=== PATIENT | male | born 1980 | race African-American/Black ===

== ENCOUNTER 2019-03-02 15:58 | Inpatient (IN) ==
[2019-03-02 16:08] VITALS: BMI 25.0
[2019-03-02 16:43] LABS: BASOPHILS # (AUTO) 0.1 X10^3/uL (0.0-0.1); EOSINOPHILS # (AUTO) 0.4 x10^3/uL (0.0-0.2); EOSINOPHILS % (AUTO) 7.3 % (0.9-2.9); LYMPHOCYTES # (AUTO) 0.8 X10^3/uL (1.3-2.9); LYMPHOCYTES % (AUTO) 13.6 % (21.0-51.0); MEAN CORPUSCULAR HGB CONC 28.7 g/dL (33.0-35.0); MEAN CORPUSCULAR VOLUME 52.4 fL (80.0-100.0); MONOCYTES # (AUTO) 0.7 x10^3/uL (0.3-0.8); MONOCYTES % (AUTO) 12.1 % (0.0-13.0); PLATELET COUNT 560 X10^3/uL (150.0-450.0); RED BLOOD COUNT 3.74 X10^6/uL (4.7-6.0); RED CELL DISTRIBUTION WIDTH 20.2 % (11.6-16.5); WHITE BLOOD COUNT 6.1 X10^3/uL (3.6-10.0)
[2019-03-02 16:53] LABS: HEMOGLOBIN 5.6 g/dL (13.5-18.0)
[2019-03-02 16:54] LABS: HEMATOCRIT 19.6 % (42.0-54.0)
[2019-03-02 16:55] LABS: ALANINE AMINOTRANSFERASE 39 Units/L (12-78); ALBUMIN 3.1 g/dL (3.4-5.0); ALKALINE PHOSPHATASE 91 Units/L (46-116); ASPARTATE AMINO TRANSFERASE 44 Units/L (15-37); BLOOD UREA NITROGEN 15 mg/dL (7-18); CALCIUM 8.1 mg/dL (8.5-10.1); CARBON DIOXIDE 26.5 mmol/L (21-32); CHLORIDE 105 mmol/L (98-107); COR CA(FOR HYPOALB) 8.8 mg/dL (8.5-10.1); CREATININE 0.85 mg/dL (0.70-1.30); SODIUM 140 mmol/L (136-145); TOTAL PROTEIN 7.2 g/dL (6.4-8.2); eGFR NON BLACK RACES > 60 (>60)
[2019-03-02 17:02] LABS: ANISOCYTOSIS 1+; HYPOCHROMASIA 3+; MICROCYTOSIS 3+; PLATELET MORPHOLOGY COMMENT NORMAL (NORMAL); TARGET CELLS FEW
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
[2019-03-02 17:08] LABS: TEAR DROP CELLS FEW
[2019-03-02] MEDS ORDERED: NS 250 ML IV 250 ML IV ONE (20:47)
[2019-03-03] MEDS ORDERED: NORCO 5/325 MG TAB PO ONE (05:13)
[2019-03-03] MEDS ORDERED: NORCO 5/325 MG TAB ONE (05:15)
[2019-03-03 05:22] LABS: HEMOGLOBIN 7.2 g/dL (13.5-18.0)
[2019-03-03] MEDS ORDERED: NS 100 ML IV 100 ML with VENOFER 400 MG IV NR ×2 (10:00)
[2019-03-03] MEDS: CIPRO IV 400 MG PREMIX* 400 MG/200 ML IV.SOLN. IV SCH ×2 (10:29→20:36)
[2019-03-03] MEDS: NS 250 ML IV 250 ML IV SCH ×3 (10:29→17:56)
[2019-03-03] MEDS ORDERED: ZOFRAN INJ 4 MG VIAL IVP ONE (11:21)
--- NOTE | 2019-03-03 13:09 | DR.H&P ---
H&P - History & Physical for Day of: H&P Date: 03/02/19 - Chief Complaint Chief Complaint: ANEMIC, LOWER LEG SWELLING - History of Present Illness History of Present Illness: PT IS 38 BM, INMATE, TO ER FOR EVAL DUE TO PT HAVING, HEMOGLOBIN ON 5.4 LABS PERFORMED ON 03/01/19, PT HAS HX OF ULCERTIVE COLITIS , MULITIPLE BLOOD TRANSFUSIONS OVER THE YEARS PT C/O HAVING BRIGHT RED STOOLS LAST WEEK PT HAD BLOOD WORK DONE IN ORDER TO CHECK HIS LEVELS DUE TO HIM RECIEVING HIS HUMIRA, PT DENIES PAIN AND C/O WEAKNESS ,BR - Past Medical History Past Medical History: Anemia Additional Medical History: ULCERATIVE COLITIS - Past Surgical History Surgical History: Abdominal Surgery - Social History Does patient currently use any type of tobacco product: No Have you used tobacco products in the last 12 months: No Type of Tobacco Use: None Does any household member use tobacco: No Alcohol Use: None Drug Use: None - Medications Home Medications: No Known Drug Allergies Allergy (Verified 03/02/19 16:02) CONTINUE taking the following medications gabapentin [Neurontin] 600 mg PO BID 03/02/19 [History] - Review of Systems Constitutional: No Symptoms Reported Eyes: No Symptoms Reported ENT: No Symptoms Reported Respiratory: No Symptoms Reported Cardiovascular: Edema Gastrointestinal: Nausea, Melena Genitourinary: No Symptoms Reported Musculoskeletal: No Symptoms Reported Skin: No Symptoms Reported Neurological: No Symptoms Reported - Physical Exam Vital Signs: Temperature 98.7 F Pulse Rate [Apical] 93 Pulse Rate 99 Respiratory Rate 20 Blood Pressure [Left Arm] 129/71 Blood Pressure 131/68 O2 Sat by Pulse Oximetry 100 Oriented: Normal Eyes: Normal Ear: Normal Nose: Normal Throat: Normal Respiratory: Clear Throughout Cardiovascular: Normal, Edema : Normal Auscultation: Bowel Sounds: Normal Palpation: Normal Tenderness: RLQ, Suprapubic, Mild Skin: Normal Musculoskeletal: Normal Psychiatric: Normal Mood Description: Calm Speech Pattern: Clear, Appropriate - Assessment/Plan (1) Anemia Qualifiers: Anemia type: iron deficiency Iron deficiency anemia type: chronic blood loss Qualified Code(s): D50.0 - Iron deficiency anemia secondary to blood loss (chronic) Status: Acute Plan: ADMIT, ICU. CARDIAC MONITORING. ADMISSION ANEMIA PANEL, STOOL STUDIES. IV HYDRATION, BP CONTROL. FE REPLACEMENT, IV CIPRO. CT ABD PELVIS WITH CONTRAST, PAIN AND NAUSEA CONTROL (2) Ulcerative colitis Status: Acute (3) Acute colitis Status: Acute (4) Iron deficiency anemia due to chronic blood loss Status: Acute - Allergies Allergies/Adverse Reactions: Allergies Allergy/AdvReac Type Severity Reaction Status Date / Time No Known Drug Allergies Allergy Verified 03/02/19 16:02
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
[2019-03-04 05:31] LABS: BASOPHILS % (AUTO) 0.6 % (0.2-1.0); EOSINOPHILS # (AUTO) 0.2 x10^3/uL (0.0-0.2); EOSINOPHILS % (AUTO) 2.2 % (0.9-2.9); HEMATOCRIT 24.7 % (42.0-54.0); HEMOGLOBIN 7.6 g/dL (13.5-18.0); LYMPHOCYTES # (AUTO) 4.1 X10^3/uL (1.3-2.9); LYMPHOCYTES % (AUTO) 54.5 % (21.0-51.0); MEAN CORPUSCULAR HEMOGLOBIN 18.2 pg (27.0-34.0); MEAN CORPUSCULAR VOLUME 58.7 fL (80.0-100.0); MONOCYTES # (AUTO) 0.5 x10^3/uL (0.3-0.8); NEUTROPHILS # (AUTO) 2.7 x10^3/uL (2.2-4.8); NEUTROPHILS % (AUTO) 35.7 % (42.0-75.0); PLATELET COUNT 519 X10^3/uL (150.0-450.0); WHITE BLOOD COUNT 7.5 X10^3/uL (3.6-10.0)
[2019-03-04 05:45] LABS: ALANINE AMINOTRANSFERASE 38 Units/L (12-78); ALBUMIN 2.7 g/dL (3.4-5.0); ALKALINE PHOSPHATASE 84 Units/L (46-116); ASPARTATE AMINO TRANSFERASE 36 Units/L (15-37); BLOOD UREA NITROGEN 8 mg/dL (7-18); CALCIUM 7.9 mg/dL (8.5-10.1); CARBON DIOXIDE 27.1 mmol/L (21-32); CHLORIDE 105 mmol/L (98-107); COR CA(FOR HYPOALB) 8.9 mg/dL (8.5-10.1); CREATININE 0.83 mg/dL (0.70-1.30); SODIUM 139 mmol/L (136-145); TOTAL PROTEIN 6.6 g/dL (6.4-8.2); eGFR NON BLACK RACES > 60 (>60)
[2019-03-04 06:01] LABS: PLATELET MORPHOLOGY COMMENT NORMAL (NORMAL)
[2019-03-04 06:02] LABS: ANISOCYTOSIS 3+; HYPOCHROMASIA 3+; MICROCYTOSIS 3+; TARGET CELLS FEW
[2019-03-04] MEDS: NS 250 ML IV 250 ML IV SCH ×5 (07:30→17:10)
[2019-03-04] MEDS: CIPRO IV 400 MG PREMIX* 400 MG/200 ML IV.SOLN. IV SCH (08:22)
[2019-03-04] MEDS ORDERED: HEMOCYTE-PLUS PO SCH (12:00)
[2019-03-04] MEDS ORDERED: MILK OF MAGNESIA PO SCH (12:00)
[2019-03-04] MEDS ORDERED: BENADRYL INJ 50 MG VIAL IVP ONE (12:33)
[2019-03-04] MEDS ORDERED: TYLENOL 325 MG TAB PO ONE ×2 (12:33→12:36)
[2019-03-04] MEDS ORDERED: BENADRYL INJ 50 MG VIAL ONE (12:36)
[2019-03-04] MEDS ORDERED: NEOSPORIN OINT TOP SCH (15:00)
[2019-03-04] MEDS ORDERED: NORCO 5/325 MG TAB PO ONE (15:03)
[2019-03-04] MEDS ORDERED: BENTYL CAP 10 MG PO ONE ×2 (15:04→15:10)
[2019-03-04] MEDS ORDERED: NEOSPORIN OINT ONE (15:10)
[2019-03-04] MEDS ORDERED: NORCO 5/325 MG TAB ONE (15:11)
[2019-03-04 19:22] LABS: HEMATOCRIT 29.4 % (42.0-54.0); HEMOGLOBIN 9.3 g/dL (13.5-18.0)
[2019-03-04 20:52] VITALS: BP 146/78
== END 2019-03-04 20:20 | DRG 812 ==
LOC: ER 15:59 → ICU 17:18
PROVIDERS: ADMIT Family Medicine; ATTEND Family Medicine
DX: K52.89 Other specified noninfective gastroenteritis and colitis; D64.89 Other specified anemias; R60.0 Localized edema; D50.0 Iron deficiency anemia secondary to blood loss (chronic); K51.80 Other ulcerative colitis without complications; R94.31 Abnormal electrocardiogram [ECG] [EKG]
CPT/HCPCS: 36415; 36430; 74177; 80053; 82607; 82728; 82746; 83540; 84466; 85014; 85018; 85025; 86140; 86850; 86900; 86901; 86922; 93005; 96365; 96374; 99284; A4222; P9016; J0744; J1200; J1756; J2405; J3490; J7050